=== PATIENT | male | born 1980 | race African-American/Black ===

== ENCOUNTER → 2017-11-18 10:37 | Outpatient (CLI) | payer OTHER, SELFPAY ==
--- NOTE | 2017-11-18 | DI.ECHO.S_ITS ---
[facility]+ [facility] +---------+ : : [address] : [place] : : : : [id number] : : : : Phone: [phone]+ Echocardiogram Report + + :Name: PREM MCCORMICK Study Date: 11/18/2017 Height: 69 in : :[facility] Weight: 205 lb : : Gender: Male BSA: 2.1 m2 : :: 1980 Age: 37 yrs BP: 142/86 mmHg: :Reason For Study: Palpitations : :Ordering Physician: QTC Performed By: Padmini Abreu : :Referring: [id number] : + + Interpretation Summary 1. Normal left ventricular size, wall thickness and systolic function with an estimated EF of 60-65% 2. Normal right ventricular size and systolic function. The estimated RVSP is 17 mm Hg. The estimated right atrial pressure is low. 3. No evidence for valvular pathology There is no old study available for review Procedure: A two-dimensional transthoracic echocardiogram with color flow and Doppler was performed. The study quality was technically adequate. There is no prior echocardiogram noted for this patient. The patient was in sinus bradycardia with heart rates between 49-61 bpm during the exam. Left Ventricle: The left ventricle is normal in size. There is normal left ventricular wall thickness. The ejection fraction is estimated to be 55-60%. No focal wall motion abnormalities appreciated. Assessment of diastolic parameters indicates normal left ventricular diastolic function and normal filling pressures. Right Ventricle: The right ventricle is normal in size and function. Atria: The left atrium is mildly dilated. Right atrial size is normal. No color doppler evidence for an ASD. Mitral Valve: The leaflets appear thin with normal excursion. There is mild mitral regurgitation. Aortic Valve: The aortic valve is normal in structure and function. The aortic valve is trileaflet. The aortic valve opens well. No aortic regurgitation is present. Tricuspid Valve: The tricuspid valve leaflets are thin and pliable. There is trace tricuspid regurgitation. The right ventricular systolic pressure is estimated at 17 mmHg assuming a right atrial pressure of 3 mm Hg. Pulmonic Valve: The pulmonic valve is not well seen, but is grossly normal. There is a trace or physiologic amount of pulmonic regurgitation. Great Vessels: The aortic root is normal size. The ascending aorta is normal in size. The aortic arch is normal in size. The IVC is of normal diameter and collapses greater than 50% with a sniff. This suggests a low right atrial pressure of 3 mm Hg. Pericardium/ Pleura There is no pericardial effusion. MMode/2D Measurements & Calculations LVIDd: 4.8 cm LVOT diam: 2.1 cm LVIDs: 3.1 cm Ao root diam: 3.6 cm FS: 34.4 % Aortic Jxn: 2.6 cm EPSS: 0.44 cm asc Aorta Diam: 2.9 cm IVSd: 1.1 cm Ao Arch Diam (Prox Trans): 2.7 cm LVPWd: 1.0 cm LV vargas. diameter/BSA (cm/m^2): 2.3 LV sys. diameter/BSA (cm/m^2): 1.5 LA A2 area: 23.9 cm2 RA long axis: 5.2 cm LA A4 area: 23.0 cm2 RA area: 19.8 cm2 LA length (vol): 5.8 cm RA vol: 64.5 ml LA vol: 79.8 ml RA : 30.9 ml/m2 LA vol index: 38.2 ml/m2 IVC diam: 1.4 cm RVD1 (basal): 3.1 cm TAPSE: 2.6 cm Doppler Measurements & Calculations Ao V2 max: 118.5 cm/sec LVOT Max Mike: 74.0 cm/sec Ao V2 mean: 82.5 cm/sec LV V1 max P.2 mmHg Ao max P.6 mmHg LV V1 VTI: 15.0 cm Ao mean P.1 mmHg MAR(I,D): 2.1 cm2 Ao V2 VTI: 25.0 cm MAR(V,D): 2.2 cm2 sev ratio: 0.60 MAR indexed to BSA (cm^2/m^2): 1.0 MV E max mike: 73.0 cm/sec TR max mike: 183.8 cm/sec MV A max mike: 44.1 cm/sec TR max P.5 mmHg MV E/A: 1.7 PA V2 max: 73.7 cm/sec Med Peak E' Mike: 8.8 cm/sec PA V2 mean: 55.8 cm/sec E/E' med: 8.3 PA mean P.3 mmHg Lat Peak E' Mike: 9.3 cm/sec PA Accel Time: 0.19 sec E/E' lat: 7.9 E/e' average: 8.1 MV dec time: 0.22 sec MV P1/2t: 64.0 msec MV /2t max mike: 73.1 cm/sec MR PISA radius: 0.50 cm MVA(2t): 3.4 cm2 Reading Physician:[email or web address]
== END ==
PROVIDERS: Visit Provider Physician Assistant Surgical
DX: R00.2 Palpitations (principal)
CPT/HCPCS: 93306